=== PATIENT | male | born 1985 | race Caucasian/White ===

== ENCOUNTER 2020-09-25 09:27 | Emergency (ER) | payer OTHER, MEDICAID ==
[~2020-09-25] VITALS: Ht 162.6 cm; Wt 74.8 kg
[2020-09-25 09:47] VITALS: BP_SYST 170
--- NOTE | 2020-09-25 09:50 | NUR ---
Patient triaged and placed in waiting room. VSS and patient appears in no acute distress at this time. Accompanied by self , awaiting available bed, and MD notified of need for MSE.
[2020-09-25] MEDS ORDERED: KETOROLAC TROMETHAMINE 60 MG/2 ML VIAL IM ONE (10:00)
--- NOTE | 2020-09-25 10:05 | NUR ---
Dr Vaughan evaluating patient in the triage room
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
--- NOTE | 2020-09-25 11:04 | NUR ---
Patient given written and verbal discharge instructions and verbalizes understanding. ER MD discussed with patient the results and treatment provided. Patient in stable condition. ID arm band removed. IV catheter removed intact and dressing applied, no active bleeding. Rx of Motrin and [place] given. Patient educated on pain management and to follow up with PMD. Pain Scale 3/10 tolerable for pt . Opportunity for questions provided and answered. Medication side effect fact sheet provided.
[2020-09-25 11:44] VITALS: BP_SYST 168
== END 2020-09-25 11:04 | disposition home or self-care (01) ==
LOC: SED 09:27
DX: M54.5 Low back pain (principal); V49.9XXA Car occupant (driver) (passenger) injured in unspecified traffic accident, initial encounter; Y93.89 Activity, other specified; Y92.89 Other specified places as the place of occurrence of the external cause; Y99.8 Other external cause status
CPT/HCPCS: 96372; 99283; J1885